=== PATIENT | female | born 1990 | race Hispanic/Latino ===

== ENCOUNTER 2016-11-28 21:42 | Emergency (ER) | payer OTHER ==
[2016-11-28] MEDS ORDERED: SKYLA1 EACH (22:05)
--- NOTE | 2016-11-28 22:21 | ED GI/GU/ABDOMINAL COMPLAINT ---
History of Present Illness General Chief Complaint: Abdominal Pain/Flank Pain Stated Complaint: LOWER ABD PAIN, LOWER BACK PAIN Source: patient Exam Limitations: no limitations Vital Signs & Intake/Output Vital Signs & Intake/Output Vital Signs Date Time Temp Pulse Resp B/P Pulse O2 O2 Flow FiO2 Ox Delivery Rate 11/289 97.6 60 22 86/52 97 ED Intake and Output 11/29 0000 11/28 1200 Intake Total 1000 Output Total Balance 1000 Intake, IV 1000 Allergies Coded Allergies: NO KNOWN ALLERGIES (11/28/16) Reconcile Medications Levonorgestrel (Queta) 14 MCG/24 HOUR (3 YEARS) IUD CONTROL (Reported) Triage Note: PER PT ABOUT 5 PM STARTED WITH ?MENSTRUAL CRAMPS, THEN GOT UP TO GO TO [place] AND HAD SHARP SHOOTING PAIN TO TAILBONE SIMILAR PAIN TO ABD, "PASSED OUT" LMP 1 MONTH AGO LAST BM YESTERDAY NORMAL. PAIN IS TERRIBLE Triage Nurses Notes Reviewed? yes ? N Is pt currently ? No Onset: Abrupt Duration: hour(s): (6 PM) Timing: recent history Quality/Severity: moderate, sharpness, severe Location: LOWER ABD PAIN Radiation: no radiation No Modifying Factors: none HPI: 26-year-old female comes into the emergency room with sudden onset abdominal pain that began around 6 PM. Patient reports that the pain is across her lower abdomen. Pain across her lower back. Sharp. Denies any fever chills vomiting. Denies any change in bowel movement. Denies any vaginal discharge. Denies any changes in appetite. Patient reports that she was fine earlier today. (MUSA MARIO) Past History Travel History Traveled to [place] past 21 day No Medical History Any Pertinent Medical History? see below for history Neurological: NONE EENT: NONE Cardiovascular: NONE Respiratory: NONE Gastrointestinal: NONE Hepatic: NONE Renal: NONE Musculoskeletal: NONE Psychiatric: NONE Endocrine: NONE Surgical History Surgical History: non-contributory Psychosocial History What is your primary language B[place]an Tobacco Use: Never used Family History Hx Contributory? No (MUSA MARIO) Review of Systems Review of Systems Constitutional: Reports: no symptoms. EENTM: Reports: no symptoms. Respiratory: Reports: no symptoms. Cardiovascular: Reports: no symptoms. GI: Reports: see HPI. Genitourinary: Reports: no symptoms. Musculoskeletal: Reports: no symptoms. Skin: Reports: no symptoms. Neurological/Psychological: Reports: no symptoms. Hematologic/Endocrine: Reports: no symptoms. Immunologic/Allergic: Reports: no symptoms. All Other Systems: Reviewed and Negative (MUSA MARIO) Physical Exam Physical Exam General Appearance: well developed/nourished, no apparent distress, alert Head: atraumatic, normal appearance Eyes: Bilateral: normal appearance, EOMI. Ears, Nose, Throat, Mouth: hearing grossly normal, moist mucous membrane Neck: normal inspection, full range of motion Respiratory: normal breath sounds, no respiratory distress Cardiovascular: regular rate/rhythm Gastrointestinal: normal bowel sounds, soft, non-tender Back: normal inspection Extremities: normal range of motion Neurologic/Psych: awake, alert, oriented x 3, normal gait Skin: intact, normal color Core Measures ACS in differential dx? No Severe Sepsis Present: No Septic Shock Present: No (MUSA MARIO) Progress Differential Diagnosis: AAA, appendicitis, biliary colic, bowel obstruction, colon cancer, cholecystitis, diverticulitis, ectopic , intrauterine , kidney stone, ovarian cyst, ovarian torsion, pancreatitis, PID/ cervicitis, peptic ulcer, PUD/GERD, SBO, threatened AB, UTI/pyelo Plan of Care: Orders Procedure Date/time Status MISTAKE 11/28 2219 Active LIPASE 11/28 222 Complete COMPREHENSIVE METABOLIC PANEL 11/28 222 Complete CBC WITHOUT DIFFERENTIAL 11/28 2219 Complete EKG 11/28 2219 Active URINE 11/28 2209 Complete URINALYSIS 11/28 221 Complete Laboratory Tests 11/28/16 2240: Anion Gap 10, Estimated GFR > 60, BUN/Creatinine Ratio 21.3, Glucose 106 H, Calcium 8.9, Total Bilirubin 0.7, AST 18, ALT 21, Alkaline Phosphatase 54, Total Protein 6.9, Albumin 4.1, Globulin 2.8, Albumin/Globulin Ratio 1.5, Lipase 116, CBC w Diff NO MAN DIFF REQ, RBC 4.05 L, MCV 87.4, MCH 29.1, RDW 12.3, MPV 8.4, Gran % 71.4, Lymphocytes % 18.3 L, Monocytes % 5.3, Eosinophils % 4.3, Basophils % 0.7, Absolute Granulocytes 10.4 H, Absolute Lymphocytes 2.6, Absolute Monocytes 0.8 H, Absolute Eosinophils 0.6, Absolute Basophils 0.1, PUBS MCHC 33.3 11/28/162209: Urine Color YEL, Urine Clarity HAZY H, Urine pH 6.5, Ur Specific [place] 1.025, Urine Protein 100 H, Urine Ketones TRACE H, Urine Nitrite NEG, Urine Bilirubin NEG@ICTO, Urine Urobilinogen 1.0, Ur Leukocyte Esterase NEG, Ur Microscopic SEDIMENT EXAMINED, Urine RBC RARE, Ur Epithelial Cells MANY H, Urine Mucus MANY H, Urine Hemoglobin NEG, Urine Glucose NEG, Urine Test NEGATIVE Diagnostic Imaging: Viewed by Me: CT Scan. Discussed w/RAD: CT Scan. Initial ED EKG: normal intervals, normal p-waves, normal QRS complex, normal sinus rhythm, rate (64) (HUBER GARCIA,MUSA) Radiology Impression: PATIENT: MARIA DEL ROSARIO HORTON PRESENT AGE: 26 PATIENT ACCOUNT NO: [id number] : 91 LOCATION: [facility] ORDERING PHYSICIAN: MUSA GARCIA SERVICE DATE: 11/28/16 EXAM TYPE : CAT - CT ABD & PELVIS W IV CONTRAST EXAMINATION: CT ABDOMEN AND PELVIS WITH CONTRAST CLINICAL INFORMATION: Sudden onset lower abdominal pain COMPARISON: None. TECHNIQUE: Multidetector volumetric imaging was performed of the abdomen and pelvis before and after the IV administration of 93 mL of Optiray 320 intravenous contrast. Sagittal and coronal reformatted images were obtained on the technologist's workstation. DLP: 250.25 mGy-cm. FINDINGS: LUNG BASES: The visualized lung bases are unremarkable. LIVER, GALLBLADDER, AND BILIARY TREE: The liver is normal in size, shape, and attenuation. No focal hepatic lesion or biliary ductal dilatation is present. The gallbladder appears unremarkable. PANCREAS: Unremarkable. SPLEEN: Unremarkable. ADRENAL GLANDS: Unremarkable. KIDNEYS AND URETERS: The kidneys are normal in size, shape, and attenuation. No hydronephrosis, hydroureter, or calculi seen. No perinephric stranding. BLADDER: Unremarkable. GASTROINTESTINAL TRACT: The small and large bowel are unremarkable. The appendix is unremarkable. ABDOMINAL WALL: No significant hernia is appreciated. LYMPH NODES: Normal. VASCULAR: Unremarkable. PELVIC VISCERA: An IUD is present in the uterus. There is fullness of the adnexa bilaterally, along with suspected bilateral ovarian cysts measuring up to approximately 3 cm in diameter. There is a moderate amount of pelvic free fluid, demonstrating increased density above simple fluid (up to approximately 36 Hounsfield units), suspicious for hemoperitoneum. Fluid is also seen in the bilateral paracolic gutters as well as a small amount extending superiorly adjacent to the liver and spleen. 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 IMPRESSION: 1. Moderate pelvic free fluid, measuring greater than simple fluid density. Fluid extends into the paracolic gutters with a small amount of fluid also present adjacent to the liver and spleen; density is suspicious for hemoperitoneum. Fullness of the adnexa is noted bilaterally along with suspected bilateral ovarian cysts. Overall appearance suggests sequelae of a hemorrhagic ovarian cyst. Ovaries may be better visualized with ultrasound. 2. Normal appendix. 3. 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 DICTATED BY: MALI NEIL MD DATE/TIME DICTATED:11/28/162348 [employer]PERATIONS [employer]ISTS:MIGEL DATE/TIME TRANSCRIBED:11/28/162348 CONFIDENTIAL, DO NOT COPY WITHOUT APPROPRIATE AUTHORIZATION. <Electronically signed in Other Vendor System> SIGNED BY: MALI NEIL MD 11/29/16 0005 Comments: Patient and her mother were updated on lab results as well as CAT scan results. Questions have been answered. (ISHA WILLS,MIGUEL A Bloom) Departure Departure Disposition: HOME OR SELF CARE Condition: Stable Referrals: DUONG WILLS,LORAINE Calhoun (PCP/Family) Departure Forms: Customer Survey General Discharge Information (MUSA MARIO) Departure Clinical Impression Primary Impression: Abdominal pain Secondary Impressions: Right ovarian cyst Additional Instructions: Please go over all results of today's visit with your primary care doctor. Contact your primary care doctor to let them know you were here in the emergency room. There may be nonspecific findings which may not be related to your visit today here in the emergency room but may require further evaluation and chronic monitoring by your primary care doctor. If you had a laceration today the chance of foreign body always remains. You should follow-up with your primary care doctor for recheck in 3-5 days for a wound check. If you had an x-ray done there is a chance that a fracture could have been missed on initial read and you should follow-up with your primary care doctor for repeat x-rays if symptoms persist. If your blood pressure was elevated here in the emergency room please have rechecked by her primary care doctor within the next 48 hours by your primary care doctor. If you were prescribed a narcotic here in the emergency room or any type of controlled substances you're not allowed to drive while taking this medication or operate any type of heavy machinery. Narcotics can make you feel lightheaded dizziness nausea and can cause constipation. You may need to berry picker machine operator a stool softener. Thank you for choosing [facility] emergency room. Please return to the emergency room immediately if you have any other concerns worsening of symptoms. Follow-up with her technical lead. Return if the pain worsens or if you begin to feel lightheaded or dizzy upon standing. Prescriptions: Current Visit Scripts Oxycodone HCl/Acetaminophen (Percocet 5-325 MG Tablet) 1-2 TAB PO Q6P PRN PAIN #20 TAB PA/ALLOCATIONS CLERK Co-Sign Statement Statement: ED Attending supervision documentation- [X] I saw and evaluated the patient. I have also reviewed all the pertinent lab results and diagnostic results. I agree with the findings and the plan of care as documented in the PA's/ALLOCATIONS CLERK's documentation. [X] I have reviewed the ED Record and agree with the PA's/ALLOCATIONS CLERK's documentation. [] Additions or exceptions (if any) to the PAs/ALLOCATIONS CLERK's note and plan are summarized below: [] (ISHA WILLS,MIGUEL A Bloom)
[2016-11-28 22:46] LABS: ABSOLUTE BASOPHIL COUNT 0.1 /CUMM (0.0-0.2); ABSOLUTE EOSINOPHIL COUNT 0.6 /CUMM (0.0-0.7); ABSOLUTE GRANULOCYTE CT 10.4 /CUMM (1.4-6.5); ABSOLUTE LYMPH COUNT 2.6 /CUMM (1.2-3.4); ABSOLUTE MONOCYTE COUNT 0.8 /CUMM (0.10-0.60); BASOPHIL % 0.7 % (0.0-2.0); EOSINOPHIL % 4.3 % (0-5); GRANULOCYTE % 71.4 % (42.2-75.2); HEMATOCRIT 35.4 % (37-47); MEAN CORPUSCULAR HGB 29.1 PG (27.0-31.0); MEAN CORPUSCULAR HGB CONC 33.3 G/DL (33.0-37.0); MEAN CORPUSCULAR VOLUME 87.4 FL (81.0-99.0); MEAN PLATELET VOLUME 8.4 FL (7.4-10.4); PLATELET COUNT 250 /CUMM (130-400); RBC DISTRIBUTION WIDTH 12.3 % (11.5-14.5); RED BLOOD CELL CT 4.05 /CUMM (4.20-5.40); WHITE BLOOD CELL COUNT 14.5 /CUMM (4.8-10.8)
--- NOTE | 2016-11-29 00:05 | CT SCAN REPORT ---
EXAMINATION: CT ABDOMEN AND PELVIS WITH CONTRAST CLINICAL INFORMATION: Sudden onset lower abdominal pain COMPARISON: None. TECHNIQUE: Multidetector volumetric imaging was performed of the abdomen and pelvis before and after the IV administration of 93 mL of Optiray 320 intravenous contrast. Sagittal and coronal reformatted images were obtained on the technologist's workstation. DLP: 250.25 mGy-cm. FINDINGS: LUNG BASES: The visualized lung bases are unremarkable. LIVER, GALLBLADDER, AND BILIARY TREE: The liver is normal in size, shape, and attenuation. No focal hepatic lesion or biliary ductal dilatation is present. The gallbladder appears unremarkable. PANCREAS: Unremarkable. SPLEEN: Unremarkable. ADRENAL GLANDS: Unremarkable. KIDNEYS AND URETERS: The kidneys are normal in size, shape, and attenuation. No hydronephrosis, hydroureter, or calculi seen. No perinephric stranding. BLADDER: Unremarkable. GASTROINTESTINAL TRACT: The small and large bowel are unremarkable. The appendix is unremarkable. ABDOMINAL WALL: No significant hernia is appreciated. LYMPH NODES: Normal. VASCULAR: Unremarkable. PELVIC VISCERA: An IUD is present in the uterus. There is fullness of the adnexa bilaterally, along with suspected bilateral ovarian cysts measuring up to approximately 3 cm in diameter. There is a moderate amount of pelvic free fluid, demonstrating increased density above simple fluid (up to approximately 36 Hounsfield units), suspicious for hemoperitoneum. Fluid is also seen in the bilateral paracolic gutters as well as a small amount extending superiorly adjacent to the liver and spleen. 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 IMPRESSION: 1. Moderate pelvic free fluid, measuring greater than simple fluid density. Fluid extends into the paracolic gutters with a small amount of fluid also present adjacent to the liver and spleen; density is suspicious for hemoperitoneum. Fullness of the adnexa is noted bilaterally along with suspected bilateral ovarian cysts. Overall appearance suggests sequelae of a hemorrhagic ovarian cyst. Ovaries may be better visualized with ultrasound. 2. Normal appendix. 3. 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
[2016-11-29] MEDS ORDERED: PERCOCET 5-3251 EACH PO (00:16)
[2016-11-29 00:23] VITALS: BP 95/62
== END 2016-11-29 00:27 ==
LOC: ERH 21:42
PROVIDERS: Physician Assistant Medical
DX: N83.201 Unspecified ovarian cyst, right side (principal); N83.202 Unspecified ovarian cyst, left side
CPT/HCPCS: 74177; 81001; 81025; 93005; 93010; 96360; 96361